=== PATIENT | female | born 2000 | race Hispanic/Latino ===

== ENCOUNTER → 2020-05-16 | Outpatient (CLI) | payer OTHER ==
--- NOTE | 2020-05-17 08:40 | RAD ---
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 This causes levoscoliotic curvature of the thoracic spine measuring 17.2 degrees from upper T5 through lower T10 on the previous study, the degree of scoliosis is approximately 23.1 degrees. 11 ribs are counted on the right with 12 ribs on the left. The same appearance was seen on the previous x-ray study. Lateral view shows normal mild kyphotic curvature of the T-spine. Swimmer's view shows normal alignment of lower cervical and upper thoracic vertebrae. IMPRESSION: Vertebral anomalies with mild leftward scoliotic curvature of the mid to lower T-spine. Electronically signed by: Reji Zepeda MD 05/17/2020 8:38 AM CDT
--- NOTE | 2020-05-17 08:42 | RAD ---
EXAM DESCRIPTION: Lumbar Spine 3 Views CLINICAL HISTORY: BACK PAIN COMPARISON: None Available. TECHNIQUE: AP/lateral/coned-down lateral FINDINGS: There is anatomic alignment of the vertebral bodies of the lumbar spine. 5 lumbar type vertebral bodies are seen above a transitional lumbosacral vertebrae appear labeled S1. Spina bifida occulta of S1 incidentally noted. Broad bilateral S1 transverse process is fused with the upper sacrum Frontal view shows intact pedicles and transverse processes. Sacrum appears intact with normal SI joints. Lateral view shows no vertebral compressions. Disc height is well-preserved. Normal bony mineralization. No destructive lesion. IMPRESSION: No diagnostic abnormality. Electronically signed by: Reji Zepeda MD 05/17/2020 8:40 AM CDT
== END | disposition home or self-care (01) ==
LOC: RAD 12:09
PROVIDERS: ATTEND Nurse Practitioner
DX: M54.6 Pain in thoracic spine (principal); M54.5 Low back pain

== ENCOUNTER → 2020-07-16 | Outpatient (CLI) | payer BC, SELFPAY | LOC: YCFC.O 16:22 | PROVIDERS: ATTEND Family Medicine | DX: R10.11 Right upper quadrant pain (principal) ==

== ENCOUNTER → 2020-07-19 | Outpatient (CLI) | payer OTHER, SELFPAY ==
--- NOTE | 2020-07-20 15:20 | US ---
EXAM DESCRIPTION: Abdomen,Limited: ULTRASOUND. CLINICAL HISTORY: RUQ PAIN COMPARISON: None. TECHNIQUE: Transabdominal scanning: del angel-scale mode. Doppler mode. Technically difficult study due to patient large body habitus. FINDINGS: Gallbladder: Minimally dilated. No fluid around the gallbladder. No wall thickening. 1.3 mm. Non-tender with transducer pressure. Common bile duct: caliber 4.2 mm within normal limits. Liver: Increased echogenicity; contour liver capsule smooth where seen. No fluid around the liver. Intrahepatic biliary ducts normal caliber. Doppler hepatopedal flow and normal caliber portal vein.. 12 mm. Long axis right lobe 14 cm. Pancreas: Not well visualized. Proximal abdominal aorta: Normal caliber.. IVC: visualized and normal caliber. Right kidney: long axis measures 10.9 cm; volume 120.1 ml. Cortical echogenicity normal.. Normal cortical thickness. Echogenic stones; no hydronephrosis. IMPRESSION: 1. Steatosis of the liver with normal size and physiologic vascularity. Smooth capsule and no ascites. Pancreas not well-visualized. 2. Minimally dilated gallbladder but otherwise unremarkable with normal wall thickness and no fluid, and nontender. Normal caliber common bile duct. 3. Right kidney is unremarkable. Normal caliber proximal abdominal aorta and IVC. Electronically signed by: Domenic Garrido MD 07/20/2020 3:19 PM CDT
== END ==
LOC: US 08:47
PROVIDERS: ATTEND Family Medicine
DX: K76.0 Fatty (change of) liver, not elsewhere classified (principal); K82.9 Disease of gallbladder, unspecified

== ENCOUNTER → 2020-09-05 | Outpatient (CLI) | payer BC | LOC: YCFC.O 15:51 | PROVIDERS: ATTEND Nurse Practitioner Family | DX: Z20.828 Contact with and (suspected) exposure to other viral communicable diseases (principal) ==